=== PATIENT | female | born 1965 | race Caucasian/White ===

== ENCOUNTER 2017-07-25 03:58 | Emergency (ER) | payer BC ==
[~2017-07-25] VITALS: Wt 76.2 kg
[2017-07-25 04:24] LABS: BILIRUBIN NEGATIVE (NEGATIVE); BLOOD TRACE-LYSED (NEGATIVE); CLARITY CLOUDY (CLEAR); COLOR YELLOW (YELLOW); GLUCOSE NEGATIVE (NEGATIVE); KETONE NEGATIVE (NEGATIVE); LEUKO ESTERASE 3+ (NEGATIVE); NITRITE NEGATIVE (NEGATIVE)
[2017-07-25] MEDS ORDERED: Orphenadrine C100 MG PO (04:32)
[2017-07-25] MEDS ORDERED: PREDNISONE20 M1 PO (04:32)
[2017-07-25] MEDS ORDERED: NORCO 5-325 TA1 EACH PO (04:32)
[2017-07-25 04:42] LABS: WBC 21-30 wbc/hpf (0-5)
[2017-07-25 04:46] LABS: BACTERIA 1+
== END 2017-07-25 04:48 | disposition home or self-care (01) ==
LOC: ED 03:58
PROVIDERS: Emergency Medicine Emergency Medical Services
DX: S39.012A Strain of muscle, fascia and tendon of lower back, initial encounter (principal); F17.200 Nicotine dependence, unspecified, uncomplicated; Z98.890 Other specified postprocedural states; X50.1XXA Overexertion from prolonged static or awkward postures, initial encounter; Y93.89 Activity, other specified; Y92.89 Other specified places as the place of occurrence of the external cause; Y99.9 Unspecified external cause status

== ENCOUNTER 2019-05-29 13:03 | Emergency (ER) | payer BC ==
[~2019-05-29] VITALS: Ht 162.5 cm; Wt 83.9 kg
[~2019-05-29 13:03] MED LIST: NORCO 5-325 TA1 EACH PO; Orphenadrine C100 MG PO; PREDNISONE20 M1 PO
[2019-05-29] MEDS ORDERED: DELTASONE20 M1 PO (14:31)
[2019-05-29] MEDS ORDERED: NAPROSYN500 MG PO (14:31)
== END 2019-05-29 15:00 | disposition home or self-care (01) ==
LOC: ED 13:03
DX: M54.5 Low back pain (principal); R20.2 Paresthesia of skin; R20.0 Anesthesia of skin; F17.200 Nicotine dependence, unspecified, uncomplicated

== ENCOUNTER 2019-05-31 18:55 | Emergency (ER) | payer BC ==
[~2019-05-31] VITALS: Ht 162.5 cm; Wt 83.9 kg
[~2019-05-31 18:55] MED LIST changes: +DELTASONE20 M1 PO; +NAPROSYN500 MG PO
[2019-05-31] MEDS ORDERED: ROBAXIN500 M1 PO (19:26)
== END 2019-05-31 21:13 | disposition home or self-care (01) ==
LOC: ED 18:55
DX: M54.41 Lumbago with sciatica, right side (principal)